=== PATIENT | male | born 1985 | race African-American/Black ===

== ENCOUNTER 2019-09-01 19:29 | Emergency (ER) | payer SELFPAY ==
[~2019-09-01] VITALS: Ht 193 cm; Wt 118.2 kg
[2019-09-01 19:32] VITALS: Ht 193 cm; Wt 118.2 kg
[2019-09-01 20:04] LABS: BASOPHILS 0.2 % (0-2); HEMATOCRIT 49.6 % (42.0-54.0); HEMOGLOBIN 17.6 g/dL (13.5-17.5); IMMATURE GRANULOCYTES 0.2 % (0-5); LYMPHOCYTES 22.2 % (15-50); MCH 32.4 pg (26.0-34.0); MCHC 35.5 g/dL (31.0-37.0); MCV 91.2 fL (80.0-100.0); MEAN PLATELET VOLUME 9.1 fL (7.4-10.4); MONOCYTES 6.8 % (2-11); NEUTROPHILS 68.6 % (40-80); PLATELET COUNT 307 10x3/uL (130-400); RBC 5.44 10x6/uL (4.20-6.10); RDW 13.3 % (11.5-14.5); WBC 9.1 10x3/uL (4.8-10.8)
[2019-09-01 20:14] LABS: CALC OSMOLALITY 271 mosm/kg (275-300); CALCIUM 9.8 mg/dL (8.5-10.1); CARBON DIOXIDE 25.4 mmol/L (21.0-32.0); CHLORIDE - SERUM 101 mmol/L (98-107); CREATININE - SERUM 1.4 mg/dL (0.6-1.3); GLUCOSE 85 mg/dL (74-106); POTASSIUM - SERUM 4.4 mmol/L (3.5-5.1); SODIUM 136 mmol/L (136-145); UREA NITROGEN 14 mg/dL (7-18); eGFR NON AFRICAN AMERICAN 62 mL/min (90-120)
[2019-09-01 20:29] LABS: ALBUMIN 4.5 g/dL (3.4-5.0); ALKALINE PHOSPHATASE 94 U/L (46-116); ALT (SGPT) 77 U/L (10-68); BILIRUBIN - TOTAL 1.07 mg/dL (0.2-1.3); CREATINE KINASE 795 UL (21-232); PROTEIN - SERUM 8.7 g/dL (6.4-8.2)
[2019-09-01] MEDS ORDERED: TYLENOL W/CODEI1 TAB PO (20:59)
[2019-09-01] MEDS ORDERED: MEDROL DOSE PACK4 MG PO (20:59)
[2019-09-01] MEDS ORDERED: CYCLOBENZAPRINE10 MG PO (20:59)
[2019-09-01 22:24] LABS: APPEARANCE CLEAR (CLEAR); BILIRUBIN NEGATIVE (NEGATIVE); COLOR YELLOW (YELLOW); GLUCOSE NEGATIVE (NEGATIVE); KETONE NEGATIVE (NEGATIVE); NITRITE NEGATIVE (NEGATIVE); PROTEIN NEGATIVE (NEGATIVE); SPECIFIC GRAVITY 1.015 (1.005-1.020); UROBILINOGEN NORMAL (NORMAL)
[2019-09-01 22:25] LABS: BACTERIA FEW /hpf (NEGATIVE); EPITHELIAL CELLS 0-5 /hpf (0-5); RED CELLS - URINE 0-5 /hpf (0-5)
[2019-09-01 22:28] VITALS: BP 131/91
== END 2019-09-01 22:28 | disposition home or self-care (01) ==
LOC: D.ER 19:29
PROVIDERS: Emergency Medicine
DX: M54.40 Lumbago with sciatica, unspecified side (principal); M54.6 Pain in thoracic spine